=== PATIENT | female | born 1985 | race Two or more races ===

== ENCOUNTER 2020-04-02 07:30 | Day surgery (SDC) | payer OTHER ==
[~2020-04-02 07:30] MED LIST: MULTIVITAMINS1 EAC9 PO
[2020-04-02] MEDS ORDERED: PERCOCET 5-3251 EACH PO (11:15)
== END 2020-04-02 14:11 | disposition home or self-care (01) ==
LOC: CIR.AMB 07:30
PROVIDERS: ATTEND Surgery
DX: C73 Malignant neoplasm of thyroid gland (principal); Z20.828 Contact with and (suspected) exposure to other viral communicable diseases